=== PATIENT | male | born 1975 | race Caucasian/White ===

== ENCOUNTER 2017-03-01 11:04 | Emergency (ER) | payer MEDICARE, MEDICAID ==
[2017-03-01 11:34] VITALS: BP 123/88
--- NOTE | 2017-03-01 12:05 | UC ---
Abdominal Pain Male HPI - HPI Summary HPI Summary: Intermittent abd pain both right and left side with diarrhea- having soft stools about 1 time per day---did feel he may have been constipated a few days ago and took some MOM---no fevers chills nausea vomiting no travel, antibiodics or illness exposure - History of Current Complaint Chief Complaint: UCAbdominalPain Stated Complaint: ABD PAIN Time Seen by Provider: 03/01/17 11:36 Hx Obtained From: Patient Onset/Duration: Gradual Onset, Lasting Weeks, Still Present Timing: Constant Severity Initially: Mild Severity Currently: Mild Location: Diffuse Radiates: No Aggravating Factor(s): Nothing Alleviating Factor(s): Nothing Associated Signs And Symptoms: Positive: Diarrhea - (soft) - Allergies/Home Medications Allergies/Adverse Reactions: Allergies Allergy/AdvReac Type Severity Reaction Status Date / Time No Known Allergies Allergy Verified 03/01/17 11:18 Home Medications: Home Medications Esomeprazole Magnesium [Nexium] 40 mg PO DAILY 03/01/17 [History Confirmed 03/01] Lisinopril/HCTZ 11/29.5(NF) [Zestoretic 11/29.5(NF)] 1 tab PO DAILY 03/01/17 [ History Confirmed 03/01/17] Loratadine 10 mg PO DAILY PRN 03/01/17 [History Confirmed 03/01/17] PMH/Surg Hx/FS Hx/Imm Hx Previously Healthy: No Cardiovascular History: Hypertension GI/ History: Gastroesophageal Reflux - Surgical History Surgical History: Yes Surgery Procedure, Year, and Place: wisdom teeth removal 20 years ago - Family History Known Family History: Positive: None - Social History Occupation: Employed Full-time Lives: With Family Alcohol Use: None Substance Use Type: None Smoking Status (MU): Never Smoked Tobacco Review of Systems Constitutional: Negative Skin: Negative Eyes: Negative ENT: Negative Respiratory: Negative Cardiovascular: Negative Gastrointestinal: Abdominal Pain, Diarrhea Genitourinary: Negative Motor: Negative Neurovascular: Negative Musculoskeletal: Negative Neurological: Negative Psychological: Negative Is Patient Immunocompromised?: No All Other Systems Reviewed And Are Negative: Yes Physical Exam Triage Information Reviewed: Yes Appearance: Well-Appearing, No Pain Distress, Well-Nourished Vital Signs: Initial Vital Signs Temp 98.4 F 03/01/17 11:22 Pulse 85 03/01/17 11:22 Resp 18 03/01/17 11:22 BP 123/88 03/01/17 11:22 Pulse Ox 100 03/01/17 11:22 Vital Signs Reviewed: Yes Eye Exam: Normal Eyes: Positive: Conjunctiva Clear ENT Exam: Normal ENT: Positive: Normal ENT inspection, Hearing grossly normal, Pharynx normal, TMs normal. Negative: Nasal congestion, Nasal drainage, Tonsillar swelling, Tonsillar exudate, Trismus, Muffled voice, Hoarse voice, Dental tenderness, Sinus tenderness Dental Exam: Normal Neck exam: Normal Neck: Positive: Supple, Nontender, No Lymphadenopathy Respiratory Exam: Normal Respiratory: Positive: Chest non-tender, Lungs clear, Normal breath sounds, No respiratory distress, No accessory muscle use Cardiovascular Exam: Normal Cardiovascular: Positive: RRR, No Murmur, Pulses Normal, Brisk Capillary Refill Abdominal Exam: Normal Abdomen Description: Positive: No Organomegaly, Soft, Other: - diffuse discomfort. Negative: CVA Tenderness (R), CVA Tenderness (L), Distended, Guarding, Hernia @, Hepatomegaly, McBurney's Point Tenderness, Peritoneal Signs , Pulsatile Mass Bowel Sounds: Positive: Present Musculoskeletal Exam: Normal Musculoskeletal: Positive: Strength Intact, ROM Intact, No Edema Neurological Exam: Normal Neurological: Positive: Alert, Muscle Tone Normal Psychological Exam: Normal Skin Exam: Normal Abd Pain Male Course/Dx - Course Course Of Treatment: diet suggestions for diarrhea, stool sample follow with pcp prn - Differential Dx/Clinical Impression Provider Diagnoses: Acute diarrhea Discharge - Discharge Plan Condition: Stable Disposition: HOME Patient Education Materials: Acute Diarrhea (ED), Nutrition Tips for Relief of Diarrhea (ED) Referrals: Kacy Aguilar MD [Primary Care Provider] - 3 Days
== END 2017-03-01 12:28 | disposition home or self-care (01) ==
LOC: UCEAST 11:04
DX: R19.7 Diarrhea, unspecified (principal); R10.9 Unspecified abdominal pain; I10 Essential (primary) hypertension; K21.9 Gastro-esophageal reflux disease without esophagitis; Z79.899 Other long term (current) drug therapy
CPT/HCPCS: 99211; G0463

== ENCOUNTER 2017-03-08 15:16 | Emergency (ER) | payer MEDICARE, MEDICAID ==
[2017-03-08] MEDS ORDERED: Ibuprofen TAB* 400 MG PO ONE (17:33)
--- NOTE | 2017-03-08 17:35 | UC ---
Lower Extremity/Ankle HPI - HPI Summary HPI Summary: states he was on his way to a when he slipped from the sidewalk to the pavement in his apartment complex about 9:45am. States his pain is 1/10 without bearing weight and 4/10 when standing/walking. Pain and swelling increasingly worse - History of Current Complaint Chief Complaint: UCLowerExtremity Stated Complaint: ANKLE INJURY Time Seen by Provider: 03/08/17 16:59 Hx Obtained From: Patient Onset/Duration: Sudden Onset Severity Initially: Mild Severity Currently: Moderate Pain Scale Used: 0-10 Numeric - 4 Aggravating Factor(s): Standing Alleviating Factor(s): Rest Able to Bear Weight: Yes - Risk Factors Gout Risk Factors: Age Over 40, Male, Hypertension DVT Risk Factors: Negative - Allergies/Home Medications Allergies/Adverse Reactions: Allergies Allergy/AdvReac Type Severity Reaction Status Date / Time No Known Allergies Allergy Verified 03/01/17 11:18 PMH/Surg Hx/FS Hx/Imm Hx Previously Healthy: Yes Cardiovascular History: Hypertension GI/ History: Gastroesophageal Reflux - Surgical History Surgical History: Yes Surgery Procedure, Year, and Place: wisdom teeth removal 20 years ago - Family History Known Family History: Positive: None - Social History Alcohol Use: None Substance Use Type: None Smoking Status (MU): Never Smoked Tobacco Review of Systems Constitutional: Negative Musculoskeletal: Arthralgia, Edema All Other Systems Reviewed And Are Negative: Yes Physical Exam Triage Information Reviewed: Yes Appearance: Well-Appearing Vital Signs: Initial Vital Signs Temp 99.3 F 03/08/17 16:00 Pulse 111 03/08/17 16:00 Resp 18 03/08/17 16:00 BP 123/74 03/08/17 16:00 Pulse Ox 98 03/08/17 16:00 Vital Signs Reviewed: Yes Musculoskeletal Exam: Other - tender to palpation along lateral malleolus of right ankle and lateral aspect of right foot. Capillary refill less than 2 sec, pedal pulses present ant and posterior. Musculoskeletal: Positive: Edema @ - right ankle and dorsum right foot Lower Extremity Course/Dx - Course Course Of Treatment: xray shows minimally displaced right fibular fracture. - Differential Dx/Diagnosis Provider Diagnoses: right fibular fracture Discharge - Discharge Plan Condition: Stable Disposition: HOME Patient Education Materials: Ankle Fracture (ED) Referrals: Kacy Aguilar MD [Primary Care Provider] - Anita Champion MD [Medical Doctor] -
--- NOTE | 2017-03-08 18:21 | RAD ---
INDICATION: Lateral right ankle pain after a slip and fall injury COMPARISON: None. TECHNIQUE: 3 views of the right ankle were obtained. FINDINGS: Overlying the distal right fibula there is an obliquely oriented minimally displaced fracture. The tibia appears to be intact. The ankle mortise is intact and symmetric. Remaining visualized bones are normal. IMPRESSION: SLIGHTLY DISPLACED OBLIQUE FRACTURE OF THE DISTAL RIGHT FIBULA.
[2017-03-08 20:28] VITALS: BP 114/74
== END 2017-03-08 20:28 | disposition home or self-care (01) ==
LOC: UCEAST 15:16
DX: S82.401A Unspecified fracture of shaft of right fibula, initial encounter for closed fracture (principal); W01.0XXA Fall on same level from slipping, tripping and stumbling without subsequent striking against object, initial encounter; Y92.9 Unspecified place or not applicable
CPT/HCPCS: 99212; A9270-GY; G0463

== ENCOUNTER 2017-03-22 16:52 | Emergency (ER) | payer MEDICARE, MEDICAID ==
[2017-03-22 17:18] VITALS: BP 121/80
--- OUTSIDE RECORDS SUMMARY | 2017-03-22 17:28 | XMS REPORT ---
:1975 External Reference #:[id number] Author Organization [facility] Address [address] [address] Phone [phone] Care Team Providers Name Role Phone Kacy Mae MD Primary Care Physician Unavailable Payers Type Date Identification Numbers Payment Provider Subscriber Medicare Primary Policy Number: [id number] Medicare Bryant Bustamante PayID: [id number] [address] [place] [address] [facility] Part B Policy Number: [id number] Medicaid Bryant Bustamante Group Name: 1 1 [address] PayID: [id number] [place] [address] Problems Date Description Provider Status Onset: 03/11/2017 Closed fracture of lateral malleolus Anita Champion M.D. Active Social History Type Date Description Comments Lives With Alone Occupation Home Health Aide ETOH Use Denies alcohol use Smoking Patient has never smoked Exercise Type/Frequency Exercises sporadically Allergies, Adverse Reactions, Alerts Date Description Reaction Status Severity Comments 03/11/2017 NKDA active Medications Medication Date Status Form Strength Qnty SIG Indications Ordering Provider Ibuprofen Active Tablets 400mg 60tabs take one Anita 000 1-2 tabs Akira by mouth M.DYani every 8 hours as needed Lisinopril-Hydr Active Tablets 10-12.5mg Andrae, ochlorothiazide 000 MD Kacy Esomeprazole Active Capsules 20mg [place]'lew, Magnesium 000 DR Kacy MD Vital Signs Date Vital Result Comment 03/18/2017 Height 69 inches 5'9" Weight 180.00 lb BP Systolic 124 mmHg BP Diastolic 84 mmHg Body Temperature 98.4 F BMI (Body Mass Index) 26.6 kg/m2 03/11/2017 Height 69 inches 5'9" Weight 180.00 lb Heart Rate 82 /min Respiratory Rate 16 /min Body Temperature 98.7 F Pain Level 2 BMI (Body Mass Index) 26.6 kg/m2 Results Description No Information Procedures Date CPT Code Description Status 03/11/2017 98751 Closed [place] Prox/Shaft Fibula W/O Manip Completed Plan of Care Future Appointment(s):03/25/2017 2:30 pm - Anita Champion M.D. at [facility]03/18/2017 - Anita Champion M.D.M25.571 Pain in right ankle and joints of right footFollow up:Follow up: 1 weekS82.61xA Disp fx of lateral malleolus of right fibula, init
--- OUTSIDE RECORDS SUMMARY | 2017-03-22 17:28 | XMS REPORT ---
:1975 External Reference #:[id number] Author Organization [facility] Address [address] [address] Phone [phone] Care Team Providers Name Role Phone Kacy Mae MD Primary Care Physician Unavailable Payers Type Date Identification Numbers Payment Provider Subscriber Medicare Primary Policy Number: [id number] Medicare Bryant Bustamante PayID: [id number] [address] [place] [address] [facility] Part B Policy Number: [id number] Medicaid Bryant Bustamante Group Name: 1 1 [address] PayID: [id number] [place] [address] Problems Date Description Provider Status Onset: 03/11/2017 [...] Indications Ordering Provider Ibuprofen Active Tablets 400mg Unknown 00 Lisinopril-[facility] Active Tablets 10-12.5mg Andrae, chlorothiazide 00 MD Kacy Esomeprazole Active Capsules DR 20mg Andrae, Magnesium 00 MD Kacy Vital Signs Date Vital Result Comment 03/11/2017 Height 69 inches 5'9" Weight 180.00 lb Heart Rate 82 /min Respiratory Rate 16 /min Body Temperature 98.7 F Pain Level 2 BMI (Body Mass Index) 26.6 kg/m2 Results Description No Information Procedures Date CPT Code Description Status 03/11/2017 25358 Short Leg Cast Completed 03/11/2017 27313 Closed [place] Prox/Shaft Fibula W/O Manip Completed Plan of Care Future Appointment(s):03/25/2017 2:30 pm - Anita Champion M.D. at [facility]03/11/2017 - Anita Champion M.D.M25.571 Pain in right ankle and joints of right footNew Xrays:Ankle Right 3+VWSFollow up:Follow up: 2 [id number] Disp fx of lateral malleolus of right fibula, init
--- NOTE | 2017-03-22 20:40 | ED ---
ED Suture/Wound Check - HPI Summary HPI Summary: Patient presents to the ED from orthopedics office after stepping in some water earlier today. Currently has a right short leg cast which comes off on Saturday. He states he got the foot slightly damp this afternoon and was concerned. After calling orthopedics office, the nurse advised he come to the ED for a cast change. On arrival, he states to the provider that while he may have felt slightly damp in the toes and shortly in the heel, the area dried up quickly and he denies any of that dampness at this time. He does not feel he had his heel involved. He was able to take a dryer to the toes and dried out the area well. On arrival, the cast is evaluated by provider and no dampness is noted. - History Of Current Complaint Chief Complaint: EDExtremityLower Stated Complaint: NEEDS CAST REWRAPPED Time Seen by Provider: 03/22/17 19:25 Hx Obtained From: Patient Onset/Duration: Sudden Onset Severity: Moderate Pain Intensity: 1 - Allergies/Home Medications Allergies/Adverse Reactions: Allergies Allergy/AdvReac Type Severity Reaction Status Date / Time No Known Allergies Allergy Verified 03/01/17 11:18 Home Medications: Home Medications Esomeprazole(NF) [NexIUM(NF)] 40 mg PO DAILY 03/22/17 [History Confirmed ] LoraTADine TAB(NF) [Claritin 10 MG TAB(NF)] 10 mg PO DAILY 03/22/17 [History Confirmed 03/22/17] PMH/Surg Hx/FS Hx/Imm Hx Previously Healthy: Yes Endocrine/Hematology History: Denies: Hx Diabetes, Hx Thyroid Disease Cardiovascular History: Reports: Hx Hypertension Respiratory History: Denies: Hx Asthma, Hx Chronic Obstructive Pulmonary Disease (COPD) GI History: Denies: Hx Ulcer - Surgical History Surgery Procedure, Year, and Place: wisdom teeth removal 20 years ago - Immunization History Hx Pertussis Vaccination: No Immunizations Up to Date: Unable to Obtain/Confirm Infectious Disease History: No Infectious Disease History: Denies: Hx Hepatitis, Hx Human Immunodeficiency Virus (HIV), Traveled Outside the [place] in Last 30 Days - Family History Known Family History: Positive: None - Social History Occupation: Unemployed, Disabled Lives: With Family Alcohol Use: Rare Hx Substance Use: No Substance Use Type: Reports: None Hx Tobacco Use: Yes Smoking Status (MU): Former Smoker Review of Systems Constitutional: Negative Negative: Fever, Chills, Fatigue Eyes: Negative Cardiovascular: Negative Respiratory: Negative Genitourinary: Negative Positive: no symptoms reported, see HPI Musculoskeletal: Negative Neurological: Negative Psychological: Normal All Other Systems Reviewed And Are Negative: Yes Physical Exam Triage Information Reviewed: Yes Vital Signs On Initial Exam: Initial Vitals Temp Pulse Resp BP Pulse Ox 98.2 F 79 18 121/80 98 03/22/17 17:14 03/22/17 17:14 03/22/17 17:14 03/22/17 17:14 03/22/17 17:14 Vital Signs Reviewed: Yes Appearance: Positive: Well-Appearing, Well-Nourished Skin: Positive: Warm, Skin Color Reflects Adequate Perfusion Head/Face: Positive: Normal Head/Face Inspection Eyes: Positive: EOMI, MISTY, Conjunctiva Clear Neck: Positive: Supple, No Lymphadenopathy Respiratory/Lung Sounds: Positive: Clear to Auscultation, Breath Sounds Present Cardiovascular: Positive: Normal, RRR, Pulses are Symmetrical in both Upper and Lower Extremities Musculoskeletal: Positive: Normal, Strength/ROM Intact Neurological: Positive: Speech Normal Psychiatric: Positive: Affect/Mood Appropriate AVPU Assessment: Alert Diagnostics - Vital Signs Vital Signs Temp Pulse Resp BP Pulse Ox 03/22/17 17:14 98.2 F 79 18 121/80 98 - Laboratory Lab Statement: Any lab studies that have been ordered have been reviewed, and results considered in the medical decision making process. Course/Dx - Course Course Of Treatment: During the course of treatment the patient is evaluated for a possible need for the change of cast. On physical exam the cast appears to be dry. He is he states he does not feel that she'll was involved, and was able to dry the toes out using a hairspring ii inspector. He is to have his cast removed on Saturday. Treatment options explained to the patient. I have asked the patient if he would like us to change out the cast at this time. He states he would like to keep the cast on as he does not feel it is wet, but was concerned as he was told to come in to have it evaluated. I've explained the concerns for getting the cast moist involving skin lesions and other complications. Patient will follow-up with Dr. Champion's office on Saturday as scheduled. - Clinical Impression Provider Diagnoses: Encounter for cast change Discharge - Discharge Plan Condition: Stable Disposition: HOME Referrals: Kacy Aguilar MD [Primary Care Provider] - Additional Instructions: As discussed, keep the cast dry Since you are not feeling any dampness and the cast is dry on exam in the emergency department, I feel we should keep the cast on You will have it removed on Saturday as scheduled
== END 2017-03-22 19:58 | disposition home or self-care (01) ==
LOC: ED 16:52
DX: Z46.89 Encounter for fitting and adjustment of other specified devices (principal); Z86.79 Personal history of other diseases of the circulatory system; Z87.891 Personal history of nicotine dependence
CPT/HCPCS: 99282

== ENCOUNTER 2018-01-17 19:26 | Emergency (ER) | payer MEDICARE, MEDICAID ==
[2018-01-17 21:57] LABS: ABS Basophils 0 10^3/ul (0-0.2); ABS Eosinophils 0.1 10^3/ul (0-0.6); ABS Lymphocytes 2.8 10^3/ul (1.0-4.8); ABS Monocytes 0.7 10^3/ul (0-0.8); ABS Nucleated RBC 0 10^3/ul; Eosinophil % 1.5 %; Hematocrit 45 % (42-52); Hemoglobin 15.7 g/dl (14.0-18.0); Lymphocyte % 36.4 %; Mean Corpuscular HGB Conc 35 g/dl (31-36); Mean Corpuscular Hemoglobin 30 pg (27-31); Mean Corpuscular Volume 85 fL (80-94); Mean Platelet Volume 8.7 fL (7.4-10.4); Nucleated Red Blood Cells % 0.1; Platelet Count 307 10^3/ul (150-450); Red Blood Count 5.29 10^6/ul (4.00-5.40); Red Cell Distribution Width 13 % (10.5-15); White Blood Count 7.7 10^3/ul (3.5-10.8)
[2018-01-17 22:02] LABS: INR 0.98 (0.77-1.02)
[2018-01-17 22:12] LABS: EGFR Non-African American 74.2 (>60)
--- NOTE | 2018-01-18 00:22 | ED ---
GI/ HPI - HPI Summary HPI Summary: 42-year-old male presents with right upper quadrant pain for the past days. States started more on the side of his right ribs. He states the pain is achy. He states he feels very superficial. He denies any chest pain or shortness breath. No pain or swelling in his calf muscles. He is nonsmoker no recent travel and no family history of blood clots. No change in appetite. Food does not change the pain. Hasn't taking anything for his symptoms. No previous belly surgeries. No urinary symptoms. No flank pain. No nausea or vomiting. - History of Current Complaint Chief Complaint: EDAbdPain Time Seen by Provider: 01/17/18 23:20 Stated Complaint: ABD PAIN Pain Intensity: 2 - Allergy/Home Medications Allergies/Adverse Reactions: Allergies Allergy/AdvReac Type Severity Reaction Status Date / Time No Known Allergies Allergy Verified 03/01/17 11:18 PMH/Surg Hx/FS Hx/Imm Hx Endocrine/Hematology History: Denies: Hx Diabetes, Hx Thyroid Disease Cardiovascular History: Reports: Hx Hypertension Respiratory History: Denies: Hx Asthma, Hx Chronic Obstructive Pulmonary Disease (COPD) GI History: Denies: Hx Ulcer - Surgical History Surgery Procedure, Year, and Place: wisdom teeth removal 20 years ago Infectious Disease History: Unable to Obtain/Confirm Infectious Disease History: Denies: Hx Hepatitis, Hx Human Immunodeficiency Virus (HIV), Traveled Outside the [place] in Last 30 Days - Family History Known Family History: Positive: None - Social History Alcohol Use: Rare Hx Substance Use: No Substance Use Type: Reports: None Hx Tobacco Use: Yes Smoking Status (MU): Former Smoker Review of Systems Negative: Fever Negative: Chest Pain Negative: Shortness Of Breath Positive: Abdominal Pain. Negative: Vomiting, Diarrhea, Nausea All Other Systems Reviewed And Are Negative: Yes Physical Exam Triage Information Reviewed: Yes Vital Signs On Initial Exam: Initial Vitals Temp Pulse Resp BP Pulse Ox 98.1 F 97 16 125/86 99 01/17/18 19:27 01/17/18 19:27 01/17/18 19:27 01/17/18 19:27 01/17/18 19:27 Vital Signs Reviewed: Yes Appearance: Positive: Well-Appearing Skin: Positive: Warm, Dry Head/Face: Positive: Normal Head/Face Inspection Eyes: Positive: Normal, Conjunctiva Clear ENT: Positive: Pharynx normal Respiratory/Lung Sounds: Positive: Clear to Auscultation, Breath Sounds Present Cardiovascular: Positive: Normal, RRR Abdomen Description: Positive: Soft, Other: - mild tenderness over right rib 11- 12 Bowel Sounds: Positive: Present Musculoskeletal: Positive: Normal Neurological: Positive: Normal Psychiatric: Positive: Normal Diagnostics - Vital Signs Vital Signs Temp Pulse Resp BP Pulse Ox 01/17/18 23:16 84 97 01/17/18 23:14 77 143/93 97 01/17/18 21:47 97.8 F 91 18 128/84 98 01/17/18 19:27 98.1 F 97 16 125/86 99 - Laboratory Lab Results: Lab Results 01/17/18 01/17/18 01/17/18 Range/Units 21:37 21:37 21:37 WBC 7.7 (3.5-10.8) 10^3/ul RBC 5.29 (4.00-5.40) 10^6/ul Hgb 15.7 (14.0-18.0) g/dl Hct 45 (42-52) % MCV 85 (80-94) fL MCH 30 (27-31) pg MCHC 35 (31-36) g/dl RDW 13 (10.5-15) % Plt Count 307 (150-450) 10^3/ul MPV 8.7 (7.4-10.4) fL Neut % (Auto) 52.3 % Lymph % (Auto) 36.4 % [place] % (Auto) 9.4 % Eos % (Auto) 1.5 % Baso % (Auto) 0.4 % Absolute Neuts (auto) 4.0 (1.5-7.7) 10^3/ul Absolute Lymphs (auto) 2.8 (1.0-4.8) 10^3/ul Absolute Monos (auto) 0.7 (0-0.8) 10^3/ul Absolute Eos (auto) 0.1 (0-0.6) 10^3/ul Absolute Basos (auto) 0 (0-0.2) 10^3/ul Absolute Nucleated RBC 0 10^3/ul Nucleated RBC % 0.1 INR (Anticoag Therapy) 0.98 (0.77-1.02) APTT 32.0 (26.0-36.3) seconds Sodium 137 (135-145) mmol/L Potassium 3.6 (3.5-5.0) mmol/L Chloride 100 L (101-111) mmol/L Carbon Dioxide 29 (22-32) mmol/L Anion Gap 8 (2-11) mmol/L BUN 12 (6-24) mg/dL Creatinine 1.09 (0.67-1.17) mg/dL Est GFR ( Amer) 89.8 (>60) Est GFR (Non-Af Amer) 74.2 (>60) BUN/Creatinine Ratio 11.0 (8-20) Glucose 111 H (70-100) mg/dL Calcium 9.7 (8.6-10.3) mg/dL Total Bilirubin 0.50 (0.2-1.0) mg/dL AST 25 (13-39) U/L ALT 32 (7-52) U/L Alkaline Phosphatase 71 (34-104) U/L Total Protein 7.5 (6.4-8.9) g/dL Albumin 4.6 (3.2-5.2) g/dL Globulin 2.9 (2-4) g/dL Albumin/Globulin Ratio 1.6 (1-3) Lipase 34 (11.0-82.0) U/L Result Diagrams: 01/17/18 21:37 01/17/18 21:37 Lab Statement: Any lab studies that have been ordered have been reviewed, and results considered in the medical decision making process. - Ultrasound No standard instances Ultrasound Interpretation Completed By: Radiologist Summary of Ultrasound Findings: IMPRESSION: No sonographic findings to correlate with patient's symptomatology. GIGU Course/Dx - Course Course Of Treatment: 42-year-old male presents with right upper quadrant pain for the past days. States started more on the side of his right ribs. He states the pain is achy. He states he feels very superficial. He denies any chest pain or shortness breath. No pain or swelling in his calf muscles. He is nonsmoker no recent travel and no family history of blood clots. No change in appetite. Food does not change the pain. Hasn't taking anything for his symptoms. No previous belly surgeries. No urinary symptoms. No flank pain. No nausea or vomiting. On exam tenderness more so over right lower ribs 11 through 12. Is a little tender right upper quadrant. Labs within normal limits. Ultrasound normal. Discussed could be muscular versus costochondritis. Patient understands and agrees with the plan. - Diagnoses Differential Diagnoses - Male: Cholecystitis, Cholelithiasis, Urinary Tract Infection Provider Diagnoses: Abdominal pain Discharge - Sign-Out/Discharge Documenting (check all that apply): Patient Departure - Discharge Plan Condition: Good Disposition: HOME Patient Education Materials: Abdominal Pain (ED) Referrals: Kacy Aguilar MD [Primary Care Provider] - Additional Instructions: Take ibuprofen or Tylenol for pain as needed every 6 hours Follow up with primary within 5 days Return to ED if develop any new or worsening symptoms - Billing Disposition and Condition Condition: GOOD Disposition: Home
[2018-01-18 00:46] VITALS: BP 117/60
== END 2018-01-18 00:50 | disposition home or self-care (01) ==
LOC: ED 19:26
DX: R10.11 Right upper quadrant pain (principal); Z87.891 Personal history of nicotine dependence
CPT/HCPCS: 36415; 76705; 80053; 83690; 85025; 85610; 85730; 99283

== ENCOUNTER 2018-03-05 12:49 | Emergency (ER) | payer MEDICARE, MEDICAID ==
--- NOTE | 2018-03-05 13:06 | ED ---
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 He has had episodes of similar CP since 2017, but it was not evaluated. Patient had a stress test approximately 10 years ago. Pain is described as pressure. Aggravating factors: touch. Alleviating factors: belching. Denies n/v, SOB, palpitations, lightheadedness. PMHx: HTN. He takes Lisinopril, Esomeprazole, allergy pill. He is a former smoker and quit 20+ years ago. ETOH socially. No recreational drugs. - History of Current Complaint Chief Complaint: EDChestWallPain Time Seen by Provider: 03/05/18 13:00 Hx Obtained From: Patient Onset/Duration: Still Present Timing: Constant Initial Severity: Mild Current Severity: Mild Pain Intensity: 3 Pain Scale Used: 0-10 Numeric Chest Pain Location: Mid Sternal Character: Pressure/Squeezing Aggravating Factor(s): Other: - touch Alleviating Factor(s): Other: - belching Associated Signs and Symptoms: Negative: Shortness of Breath, Lightheadedness, Nausea, Palpitations, Vomiting - Allergy/Home Medications Allergies/Adverse Reactions: Allergies Allergy/AdvReac Type Severity Reaction Status Date / Time No Known Allergies Allergy Verified 03/05/18 12:59 Home Medications: Home Medications Esomeprazole(NF) [NEXium(NF)] 20 mg PO DAILY 03/05/18 [History Confirmed ] Loratadine [Allergy Relief] 10 mg PO DAILY 03/05/18 [History Confirmed 03/05/18] PMH/Surg Hx/FS Hx/Imm Hx Previously Healthy: No Endocrine/Hematology History: Denies: Hx Diabetes, Hx Thyroid Disease Cardiovascular History: Reports: Hx Hypertension Respiratory History: Denies: Hx Asthma, Hx Chronic Obstructive Pulmonary Disease (COPD) GI History: Denies: Hx Ulcer - Surgical History Surgery Procedure, Year, and Place: wisdom teeth removal 20 years ago Infectious Disease History: No Infectious Disease History: Denies: Hx Hepatitis, Hx Human Immunodeficiency Virus (HIV), Traveled Outside the [place] in Last 30 Days - Family History Known Family History: Positive: Other - ETOH abuse (dad) - Social History Occupation: Employed Full-time Lives: Alone Alcohol Use: Rare Hx Substance Use: No Substance Use Type: Reports: None Hx Tobacco Use: Yes Smoking Status (MU): Former Smoker Review of Systems Positive: Chest Pain. Negative: Palpitations Negative: Shortness Of Breath Negative: Vomiting, Nausea Neurological: Other - neg: lightheadedness All Other Systems Reviewed And Are Negative: Yes Physical Exam - Summary Physical Exam Summary: VITAL SIGNS: Reviewed. GENERAL: Patient is a well-developed and nourished MALE who is lying comfortable in the stretcher. Patient is not in any acute respiratory distress. HEAD AND FACE: No signs of trauma. No ecchymosis, hematomas or skull depressions. No sinus tenderness. EYES: PERRLA, EOMI x 2, No injected conjunctiva, no nystagmus. EARS: Hearing grossly intact. Ear canals and tympanic membranes are within normal limits. MOUTH: Oropharynx within normal limits. NECK: Supple, trachea is midline, no adenopathy, no JVD, no carotid bruit, no c- spine tenderness, neck with full ROM. CHEST: Symmetric, mild reproducible tenderness at palpation LUNGS: Clear to auscultation bilaterally. No wheezing or crackles. CVS: Regular rate and rhythm, S1 and S2 present, no murmurs or gallops appreciated. ABDOMEN: Soft, non-tender. No signs of distention. No rebound, no guarding, and no masses palpated. Bowel sounds are normal. EXTREMITIES: FROM in all major joints, no edema, no cyanosis or clubbing EXCEPT LUE weakness since NEURO: Alert and oriented x 3. No acute neurological deficits. Speech is normal and follows commands. SKIN: Dry and warm Triage Information Reviewed: Yes Vital Signs On Initial Exam: Initial Vitals Temp Pulse Resp BP Pulse Ox 97.5 F 89 16 126/90 98 03/05/18 12:52 03/05/18 12:52 03/05/18 12:52 03/05/18 12:52 03/05/18 12:52 Vital Signs Reviewed: Yes Diagnostics - Vital Signs Vital Signs Temp Pulse Resp BP Pulse Ox 03/05/18 12:52 97.5 F 89 16 126/90 98 - Laboratory Result Diagrams: 03/05/18 13:19 03/05/18 13:19 Lab Statement: Any lab studies that have been ordered have been reviewed, and results considered in the medical decision making process. - Radiology CXR Radiology Interpretation Completed By: Radiologist Summary of Radiographic Findings: IMPRESSION: NO ACTIVE CARDIOPULMONARY DISEASE. ED provider has reviewed this report. - EKG 1313 Cardiac Rate: NL - 91 bpm EKG Rhythm: Sinus Rhythm ST Segment: Normal - no ST elevation Re-Evaluation - Re-Evaluation 1 Re-Evaluation Time: 16:40 Change: Unchanged Comment: Discussing results with patient and plans for discharge. Pt voiced understanding. 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 He has had episodes of similar CP since 2017, but it was not evaluated. Patient had a stress test approximately 10 years ago. Pain is described as pressure. Aggravating factors: touch. Alleviating factors: belching. Denies n/v, SOB, palpitations, lightheadedness. PMHx: HTN. He takes Lisinopril, Esomeprazole, allergy pill. He is a former smoker and quit 20+ years ago. ETOH socially. No recreational drugs. Blood work is without any significant abnormality. EKG shows no ST elevation. 2 troponins 4 hours apart are both negative. Chest x-ray impression: No active cardiopulmonary disease. Patient reports that all symptoms have resolved. Because the patient has no significant comorbidities and no family history of cardiovascular disease at his age, the patient will be discharged home with PCP follow up. I discussed all the findings and test results with the patient. Patient was instructed to return to the emergency room immediately if any of the symptoms return or worsens. Patient understands and agrees. Plan of care was discussed with the patient and patient understands and agrees. All questions were answered at patient satisfaction. There were no further complaints or concerns. PE before discharge: CVS: S1 and S2 present. No murmurs appreciated. Abdominal exam before discharge: Soft, non-tender. No signs of distention. No rebound no guarding, and no masses palpated. Bowel sounds are normal. Patient is alert and oriented x 3. Patient is hemodynamically stable. - Chest Pain Differential Diagnosis/HQI/PQRI: Acute NE, ACS, Angina, CHF, Chest Wall, GI Disease, Lower Respiratory Infection - Diagnoses Provider Diagnoses: Atypical chest pain Discharge - Sign-Out/Discharge Documenting (check all that apply): Patient Departure - D/C - Discharge Plan Condition: Stable Disposition: HOME Patient Education Materials: Chest Pain (ED), Chest Wall Pain (ED) Referrals: Kacy Aguilar MD [Primary Care Provider] - 3 Days Additional Instructions: RETURN TO THE ED FOR ANY WORSENING OR NEW SYMPTOMS. - Billing Disposition and Condition Condition: STABLE Disposition: Home - Attestation Statements Document Initiated by Scribe: Yes Documenting Scribe: Kiel Devi Provider For Whom Scribe is Documenting (Include Credential): Dr. Alin Camarillo MD Scribe Attestation: Kiel Griffith, scribed for Dr. Alin Camarillo MD on 03/06/18 at 0756. Scribe Documentation Reviewed: Yes Provider Attestation: The documentation as recorded by the Kiel alvarenga accurately reflects the service I personally performed and the decisions made by me, Dr. Alin Camarillo MD Status of Scribe Document: Viewed
[2018-03-05] MEDS ORDERED: Aspirin 81 mg CHEW TAB* 81 MG TAB.CHEW PO ONE (13:13)
[2018-03-05 13:34] LABS: ABS Basophils 0 10^3/ul (0-0.2); ABS Eosinophils 0.1 10^3/ul (0-0.6); ABS Lymphocytes 2.2 10^3/ul (1.0-4.8); ABS Monocytes 0.5 10^3/ul (0-0.8); ABS Neutrophils 3.7 10^3/ul (1.5-7.7); ABS Nucleated RBC 0 10^3/ul; Eosinophil % 1.5 %; Hematocrit 44 % (42-52); Hemoglobin 15.4 g/dl (14.0-18.0); Lymphocyte % 34.1 %; Mean Corpuscular HGB Conc 35 g/dl (31-36); Mean Corpuscular Hemoglobin 30 pg (27-31); Mean Corpuscular Volume 84 fL (80-94); Mean Platelet Volume 8.9 fL (7.4-10.4); Nucleated Red Blood Cells % 0.1; Platelet Count 263 10^3/ul (150-450); Red Blood Count 5.19 10^6/ul (4.00-5.40); Red Cell Distribution Width 13 % (10.5-15); White Blood Count 6.6 10^3/ul (3.5-10.8)
[2018-03-05 13:57] LABS: Albumin/Globulin Ratio 1.2 (1-3); BUN/Creatinine Ratio 11.4 (8-20); Calcium 9.6 mg/dL (8.6-10.3); EGFR Non-African American 77.5 (>60); Globulin 3.3 g/dL (2-4); Magnesium 2.2 mg/dL (1.9-2.7); Potassium 3.5 mmol/L (3.5-5.0); Total Bilirubin 0.6 mg/dL (0.2-1.0); Total Protein 7.3 g/dL (6.4-8.9)
[2018-03-05 14:27] LABS: TSH (Thyroid Stimulating Horm) 0.88 mcIU/mL (0.34-5.60)
[2018-03-05 16:48] VITALS: BP 111/87
== END 2018-03-05 16:48 | disposition home or self-care (01) ==
LOC: ED 12:49
DX: R07.89 Other chest pain (principal); I10 Essential (primary) hypertension; Z87.891 Personal history of nicotine dependence
CPT/HCPCS: 36415; 71045; 80053; 82550; 82553; 83605; 83735; 83880; 84443; 84484; 85025; 93005; 99282; A9270-GY

== ENCOUNTER 2018-06-03 18:43 | Emergency (ER) | payer MEDICARE, MEDICAID ==
--- NOTE | 2018-06-03 18:49 | UC ---
Throat Pain/Nasal [place] HPI - HPI Summary HPI Summary: 42 yo male presents with sore throat since last night. He has been using OTC throat lozenges and drinking hot chocolate, which help. He is concerned he may have strep. No known exposure. Denies fever, sinus symptoms, cough, rash. - History of Current Complaint Stated Complaint: SORE THROAT Time Seen by Provider: 06/03/18 18:49 Hx Obtained From: Patient Onset/Duration: Sudden Onset Severity: Mild Pain Intensity: 3 Pain Scale Used: 0-10 Numeric - Allergies/Home Medications Allergies/Adverse Reactions: Allergies Allergy/AdvReac Type Severity Reaction Status Date / Time No Known Allergies Allergy Verified 03/05/18 12:59 Home Medications: Home Medications raNITIdine HCl [Zantac 150 Maximum Streng] 150 mg PO DAILY 06/03/18 [History Confirmed 06/03/18] PMH/Surg Hx/FS Hx/Imm Hx Cardiovascular History: Hypertension - Surgical History Surgical History: Yes Surgery Procedure, Year, and Place: wisdom teeth removal 20 years ago - Family History Known Family History: Positive: Other - ETOH abuse (dad) - Social History Lives: With Family Alcohol Use: Rare Substance Use Type: None Smoking Status (MU): Former Smoker Review of Systems All Other Systems Reviewed And Are Negative: Yes Constitutional: Positive: Negative Skin: Positive: Negative Eyes: Positive: Negative ENT: Positive: Sore Throat Respiratory: Positive: Negative Cardiovascular: Positive: Negative Gastrointestinal: Positive: Negative Neurovascular: Positive: Negative Neurological: Positive: Negative Psychological: Positive: Negative Physical Exam - Summary Physical Exam Summary: GENERAL: NAD. WDWN. No pain distress. SKIN: No rashes, sores, lesions, or open wounds. HEENT: Head: AT/NC Eyes: EOM intact. Conjunctiva clear without inflammation or discharge. Ears: Hearing grossly normal. TMs intact, no bulging, erythema, or edema. Nose: Nasal mucosa pink and moist. NTTP maxillary and frontal sinus. Throat: Posterior oropharynx without exudates, erythema, or tonsillar enlargement. Uvula midline. NECK: Supple. Nontender. No lymphadenopathy. CHEST: CTAB. No r/r/w. No accessory muscle use. Breathing comfortably and in no distress. CV: RRR. Without m/r/g. Pulses intact. Cap refill <2seconds NEURO: Alert. PSYCH: Age appropriate behavior. Triage Information Reviewed: Yes Vital Signs: Vital Signs: Temp Pulse Resp BP Pulse Ox 98.3 F 99 18 129/83 98 06/03/18 19:00 06/03/18 19:00 06/03/18 19:00 06/03/18 19:00 06/03/18 19:00 Laboratory Tests 06/03/18 18:58 Group A Strep Rapid Negative Vital Signs Reviewed: Yes Throat Pain/Nasal Course/Dx - Course Course Of Treatment: POC strep negative. Suspect viral pharyngitis. Advised to continue OTC treatments and f/u if symptoms do not improve. - Differential Dx/Diagnosis Provider Diagnosis: Pharyngitis Discharge - Sign-Out/Discharge Documenting (check all that apply): Patient Departure All imaging exams completed and their final reports reviewed: No Studies - Discharge Plan Condition: Stable Disposition: HOME Patient Education Materials: Pharyngitis (ED) Referrals: Kacy Aguilar MD [Primary Care Provider] - Additional Instructions: If you develop a fever, shortness of breath, chest pain, new or worsening symptoms - please call your PCP or go to the ED. Continue your throat lozenges and hot chocolate/tea Follow up if your symptoms do not improve - Billing Disposition and Condition Condition: STABLE Disposition: Home
[2018-06-03 19:02] VITALS: BP 129/83
== END 2018-06-03 19:20 | disposition home or self-care (01) ==
LOC: UCEAST 18:43
DX: J02.9 Acute pharyngitis, unspecified (principal); I10 Essential (primary) hypertension; Z87.891 Personal history of nicotine dependence
CPT/HCPCS: 87651; 99212; G0463

== ENCOUNTER 2019-04-01 15:52 | Emergency (ER) | payer MEDICARE, MEDICAID ==
[2019-04-01 16:07] VITALS: BP 129/89
--- NOTE | 2019-04-01 16:55 | UC ---
Upper Extremity HPI - HPI Summary HPI Summary: 43 yo with hypertension with a week hx of right shoulder pain, both posterior and in the right pectoral region, associated with movement. 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 No neck pain and no arm numbness. At the same time, he has noticed that he has a small nodule in the suprascapular area on the right. Using ibuprofen 400mg once daily for discomfort. - History of Current Complaint Chief Complaint: UCUpperExtremity Stated Complaint: SHOULDER PAIN Time Seen by Provider: 04/01/19 16:11 Hx Obtained From: Patient Onset/Duration: Gradual Onset, Lasting Days Severity Initially: Mild Severity Currently: Mild Pain Intensity: 1 Location Of Pain: Is Diffuse Character: Aching Aggravating Factor(s): Movement Alleviating Factor(s): OTC Meds Associated Signs And Symptoms: Positive: Negative Related History: Dominant Hand Right - Risk Factors Non-Orthopedic Risk Factor: Negative DVT Risk Factors: Negative Septic Arthritis Risk Factor: Negative - Allergies/Home Medications Allergies/Adverse Reactions: Allergies Allergy/AdvReac Type Severity Reaction Status Date / Time No Known Allergies Allergy Verified 04/01/19 16:08 Home Medications: Home Medications Omeprazole 20 mg PO DAILY 04/01/19 [History Confirmed 04/01/19] PMH/Surg Hx/FS Hx/Imm Hx Previously Healthy: Yes - hx of injury resulting in left sided weakness. - Surgical History Surgical History: Yes Surgery Procedure, Year, and Place: wisdom teeth removal 20 years ago - Family History Known Family History: Positive: Other - ETOH abuse (dad) - Social History Occupation: Employed Full-time Alcohol Use: Occasionally Substance Use Type: None Smoking Status (MU): Former Smoker When Did the Patient Quit Smoking/Using Tobacco: 1995 Review of Systems All Other Systems Reviewed And Are Negative: Yes Constitutional: Positive: Negative Skin: Positive: Other - skin nodule, sees derm regularly Eyes: Positive: Negative ENT: Positive: Negative Respiratory: Positive: Negative Cardiovascular: Positive: Negative Gastrointestinal: Positive: Negative Genitourinary: Positive: Negative Motor: Positive: Decreased ROM - right shoulder Neurovascular: Positive: Negative Musculoskeletal: Positive: Negative Neurological/Mental Status: Positive: Negative Psychological: Positive: Negative Is Patient Immunocompromised?: No Physical Exam Triage Information Reviewed: Yes Appearance: Well-Appearing, No Pain Distress Vital Signs: Initial Vital Signs Temp 98.2 F 04/01/19 15:58 Pulse 94 04/01/19 15:58 Resp 16 04/01/19 15:58 BP 129/89 04/01/19 15:58 Pulse Ox 99 04/01/19 15:58 Eye Exam: Normal ENT: Positive: Pharynx normal Neck: Positive: Supple, Nontender, No Lymphadenopathy Respiratory: Positive: Lungs clear, Normal breath sounds Cardiovascular: Positive: RRR, No Murmur Musculoskeletal Exam: Other - Full rom in cervical spine without pain. Mild TTP posterior latissimus and anterior pectoral region. No shoulder joint line tenderness. Musculoskeletal: Positive: Strength Intact, ROM Intact - Mild tenderness with IR of right shoulder and adduction. Neurological Exam: Other - left arm with muscle atrophy and diffuse weakness. Neurological: Positive: Alert Psychological Exam: Normal Skin Exam: Other - 1.5 cm firm subcutaneous nodule in the right supraacapular area, consistent with sebaceous cyst. Upper Extremity Course/Dx - Course Course Of Treatment: Advised continued use of ibuprofen and heat /ice to shoulder. He will follow up with his military logistics specialist in a few months regarding cyst. - Differential Dx/Diagnosis Differential Diagnosis/HQI/PQRI: Bursitis, Strain, Sprain Provider Diagnosis: Right shoulder strain Discharge ED - Sign-Out/Discharge Documenting (check all that apply): Patient Departure All imaging exams completed and their final reports reviewed: No Studies - Discharge Plan Condition: Stable Disposition: HOME Patient Education Materials: Shoulder Sprain (ED), Cyst (ED) Referrals: Kacy Aguilar MD [Primary Care Provider] - Additional Instructions: As discussed, you will have your military logistics specialist check the cyst over the shoulder blade at your next follow up. The shoulder ache is most likely a strain from some activity or from bad sleeping position. You can try ice or warm packs to the area, and continue use of ibuprofen. If pain continues for more than 1-2 weeks, follow up with Dr. Hinson. - Billing Disposition and Condition Condition: STABLE Disposition: Home
[2019-04-02 12:39] LABS: HIV 4th Generation Nonreactive (Nonreactive)
== END 2019-04-01 17:20 | disposition home or self-care (01) ==
LOC: UCEAST 15:52
DX: S46.811A Strain of other muscles, fascia and tendons at shoulder and upper arm level, right arm, initial encounter (principal); Z87.891 Personal history of nicotine dependence; X58.XXXA Exposure to other specified factors, initial encounter; Y92.9 Unspecified place or not applicable
CPT/HCPCS: 36415; 87389; 99211; G0463

== ENCOUNTER 2023-09-13 07:45 | Inpatient (IN) ==
[2023-09-13] MEDS: Orphenadrine Citrate INJ 30 mg/ml 2 ml VIAL (60 mg) IV ONE ×2 (08:33→17:07)
[2023-09-13] MEDS: Ondansetron 4 mg VIAL 2 MG/ML 2 ml VIAL IV ONE (08:33)
[2023-09-13 08:35] LABS: ABS Basophils 0.1 10^3/uL (0.0-0.1); ABS Lymphocytes 1.1 10^3/uL (1.0-4.8); ABS Monocytes 1.1 10^3/uL (0.0-1.1); ABS Neutrophils 11.7 10^3/uL (1.5-7.6); Eosinophil % 0.1 %; Hematocrit 38.6 % (38-53); Hemoglobin 13.7 g/dL (13.2-16.3); Lymphocyte % 8.1 %; Mean Corpuscular Hemoglobin 29.8 pg (27-33); Mean Corpuscular Hgb Conc 35.5 g/dL (31-36); Mean Corpuscular Volume 83.8 fL (80-97); Mean Platelet Volume 8.2 fL (7.5-11.2); Platelet Count 289 10^3/uL (150-450); Red Cell Distribution Width 12.8 % (12-17); White Blood Count 14.1 10^3/uL (3.6-10.2)
[2023-09-13 09:01] LABS: Albumin/Globulin Ratio 1.4 (1-3); C Reactive Protein 49.48 mg/L (<8.01); Calcium 8.8 mg/dL (8.6-10.3); Creatinine, Serum 1.64 mg/dL (0.67-1.17); Globulin 2.9 g/dL (2-4); Potassium 3.8 mmol/L (3.5-5.0); Total Bilirubin 1.1 mg/dL (0.2-1.0); Total Protein 6.9 g/dL (6.4-8.9); eGFR CKD-EPI 51.6 (>60)
[2023-09-13 10:43] LABS: Urine Appearance Turbid; Urine Bilirubin Negative (Negative); Urine Blood 3+ (Negative); Urine Color Yellow; Urine Glucose 1+ (>=70 mg/dL) (Negative); Urine Ketones 2+ (Negative); Urine Nitrite Negative (Negative); Urine Protein Trace (Negative); Urine Specific Gravity 1.027 (1.002-1.030); Urine Urobilinogen Negative (Negative); Urine pH 5.5 (5.0-8.0)
[2023-09-13 10:45] LABS: Urine Bacteria Absent /HPF (Absent); Urine Red Blood Cell 3+(>10/hpf) /HPF (0-Trace); Urine White Blood Cell 2+(11-20/hpf) /HPF (0-Trace)
[2023-09-13] MEDS: Morphine 4 MG/ML VIAL (1 ml) IV ONE (12:09)
[2023-09-13] MEDS: cefTRIAXone 1 gm/50 mL D5W 1 GM/50 ML BAG IV ONE (16:35)
[2023-09-13] MEDS: Orphenadrine Citrate INJ 30 mg/ml 2 ml VIAL (60 mg) IM ONE (17:08)
[2023-09-13] MEDS: Lactated Ringers 1000 ml BAG 1,000 ML IV SCH (19:34)
[2023-09-13] MEDS: Acetaminophen IV 1 GM/100ML 1,000 MG/100 ML BAG IV SCH (19:34)
[2023-09-14] MEDS: Morphine 2 MG/ML SYRINGE IV PRN (06:11)
[2023-09-14] MEDS: Morphine 2 MG/ML SYRINGE IV ONE (06:47)
[2023-09-14 07:38] LABS: ABS Eosinophils 0.1 10^3/uL (0.0-0.5); ABS Lymphocytes 2.5 10^3/uL (1.0-4.8); ABS Monocytes 1.3 10^3/uL (0.0-1.1); ABS Neutrophils 4.9 10^3/uL (1.5-7.6); Hemoglobin 12.7 g/dL (13.2-16.3); Lymphocyte % 28.5 %; Mean Corpuscular Hemoglobin 30.2 pg (27-33); Mean Corpuscular Hgb Conc 35.4 g/dL (31-36); Mean Corpuscular Volume 85.3 fL (80-97); Mean Platelet Volume 8.5 fL (7.5-11.2); Platelet Count 242 10^3/uL (150-450); Red Blood Count 4.22 10^6/uL (4.06-5.63); Red Cell Distribution Width 12.8 % (12-17); White Blood Count 8.8 10^3/uL (3.6-10.2)
[2023-09-14 07:47] LABS: Calcium 8.3 mg/dL (8.6-10.3); Creatinine, Serum 1.28 mg/dL (0.67-1.17); Potassium 4.1 mmol/L (3.5-5.0); eGFR CKD-EPI 69.5 (>60)
[2023-09-14] MEDS ORDERED: Dexamethasone IV 4 MG/ML VIAL 1 ml VIAL ONE (08:03)
[2023-09-14] MEDS ORDERED: Propofol 10 MG/ML 20 ML BTL ONE (08:03)
[2023-09-14] MEDS ORDERED: Midazolam 2 mg/2 ml VIAL 1 mg/ml 2 ml VIAL (2 mg) ONE (08:03)
[2023-09-14] MEDS ORDERED: Ondansetron 4 mg VIAL 2 MG/ML 2 ml VIAL ONE (08:03)
[2023-09-14] MEDS ORDERED: fentaNYL 100 mcg/2 ml 50 MCG/ML VIAL ONE ×2 (08:03→08:57)
[2023-09-14] MEDS ORDERED: Lidocaine 2% PF 5 ML VIAL ONE (08:03)
[2023-09-14] MEDS ORDERED: Ondansetron 4 mg VIAL 2 MG/ML 2 ml VIAL IV PRN (08:12)
[2023-09-14] MEDS ORDERED: Metoclopramide 5 MG/ML VIAL (10 mg) IV PRN (08:12)
[2023-09-14] MEDS ORDERED: Naloxone 0.4 mg VIAL 0.4 mg/ml 1 ml VIAL IV PRN (08:12)
[2023-09-14] MEDS ORDERED: fentaNYL 100 mcg/2 ml 50 MCG/ML VIAL IV PRN (08:12)
[2023-09-14] MEDS ORDERED: ceFAZolin VIAL VIAL ONE (08:48)
[2023-09-14] MEDS ORDERED: Phenylephrine 40 mcg/mL 10mL (400mcg) SYRINGE ONE (08:57)
[2023-09-14] MEDS ORDERED: NS 0.45% 1000 ml BAG 1,000 ML IV SCH (09:00)
[2023-09-14] MEDS: Buffered Lidocaine 1% SYRIN 1 ml INTRADERM ONE (11:11)
[2023-09-14] MEDS: Scopolamine 1 mg/72hr PATCH TRANSDERM ONE (11:11)
[2023-09-14] MEDS: Lactated Ringers 1000 ml BAG 1,000 ML IV SCH (11:11)
[2023-09-14] MEDS: Acetaminophen IV 1 GM/100ML 1,000 MG/100 ML BAG IV ONE (11:11)
[2023-09-14] MEDS ORDERED: cefTRIAXone 1 gm/50 mL D5W 1 GM/50 ML BAG IV SCH (16:30)
[2023-09-14] MEDS: cefTRIAXone 1 gm/50 mL D5W 1 GM/50 ML BAG IV SCH (20:26)
[2023-09-15 06:08] LABS: ABS Lymphocytes 1.3 10^3/uL (1.0-4.8); ABS Monocytes 1.2 10^3/uL (0.0-1.1); Hemoglobin 11.6 g/dL (13.2-16.3); Mean Corpuscular Hgb Conc 34.3 g/dL (31-36); Mean Corpuscular Volume 84.5 fL (80-97); Mean Platelet Volume 8.3 fL (7.5-11.2); Platelet Count 259 10^3/uL (150-450); Red Blood Count 4.02 10^6/uL (4.06-5.63); Red Cell Distribution Width 12.8 % (12-17); White Blood Count 12.5 10^3/uL (3.6-10.2)
[2023-09-15 07:06] LABS: Calcium 8.8 mg/dL (8.6-10.3); Creatinine, Serum 1.02 mg/dL (0.67-1.17); Potassium 4.1 mmol/L (3.5-5.0); eGFR CKD-EPI 91.2 (>60)
[2023-09-16 05:48] LABS: ABS Eosinophils 0.1 10^3/uL (0.0-0.5); ABS Lymphocytes 1.7 10^3/uL (1.0-4.8); ABS Monocytes 1.2 10^3/uL (0.0-1.1); ABS Neutrophils 5.4 10^3/uL (1.5-7.6); Eosinophil % 0.8 %; Hematocrit 32.5 % (38-53); Hemoglobin 11.4 g/dL (13.2-16.3); Lymphocyte % 20.4 %; Mean Corpuscular Hemoglobin 29.5 pg (27-33); Mean Corpuscular Hgb Conc 35.1 g/dL (31-36); Mean Platelet Volume 7.9 fL (7.5-11.2); Platelet Count 261 10^3/uL (150-450); Red Blood Count 3.87 10^6/uL (4.06-5.63); Red Cell Distribution Width 12.6 % (12-17); White Blood Count 8.5 10^3/uL (3.6-10.2)
[2023-09-16 06:26] LABS: Calcium 8.3 mg/dL (8.6-10.3); Creatinine, Serum 1.43 mg/dL (0.67-1.17); Potassium 3.5 mmol/L (3.5-5.0); eGFR CKD-EPI 60.8 (>60)
[2023-09-16 08:34] LABS: INR 1.08 (0.83-1.13)
[2023-09-16] MEDS ORDERED: Flumazenil 0.5 mg/5 ml 0.1 MG/ML 5 ml VIAL IV PRN (09:01)
[2023-09-16] MEDS ORDERED: Naloxone 0.4 mg VIAL 0.4 mg/ml 1 ml VIAL IV PUSH PRN (09:01)
[2023-09-16] MEDS: fentaNYL 100 mcg/2 ml 50 MCG/ML VIAL IV SLOW PU ONE (13:18)
[2023-09-16] MEDS: Midazolam 10 mg/10 ml VIAL 1 mg/ml 10 ml VIAL (10 mg) IV SLOW PU ONE (13:18)
[2023-09-16] MEDS: fentaNYL 250 mcg/5 ml 50 MCG/ML 5 ml VIAL (250 MCG) ONE (13:19)
[2023-09-16] MEDS: Midazolam 2 mg/2 ml VIAL 1 mg/ml 2 ml VIAL (2 mg) ONE (13:19)
[2023-09-16] MEDS ORDERED: Polyethylene Glycol 3350 17 GM PACKET PO PRN (21:15)
[2023-09-16] MEDS ORDERED: Senna TAB 8.6 mg TAB PO PRN (21:15)
[2023-09-17] MEDS: Magnesium Hydroxide LIQ 30 ML UDC PO ONE (09:29)
[2023-09-17 09:43] VITALS: BP 135/88
[2023-09-17 10:27] LABS: Calcium 8.9 mg/dL (8.6-10.3); Creatinine, Serum 1.06 mg/dL (0.67-1.17); Potassium 4.1 mmol/L (3.5-5.0); eGFR CKD-EPI 87.1 (>60)
== END 2023-09-17 14:10 | disposition home or self-care (01) | DRG 854 ==
LOC: ED 07:45 → EDHOLD 07:45 → MED 23:48
PROVIDERS: ADMIT Internal Medicine; ATTEND Internal Medicine

== ENCOUNTER 2023-09-30 10:47 | Observation (INO) ==
[~2023-09-30 10:47] MED LIST: NS 0.45% 1000 ml BAG 1,000 ML IV SCH; Naloxone 0.4 mg VIAL 0.4 mg/ml 1 ml VIAL IV PRN; Ondansetron 4 mg VIAL 2 MG/ML 2 ml VIAL IV PRN
[2023-09-30] MEDS ORDERED: ceFAZolin 2 GM in NS PREMIX 2 GM/100 ML BAG IVPB ONE (12:30)
[2023-09-30] MEDS ORDERED: Lidocaine 2% PF 5 ML VIAL ONE ×2 (13:20→14:33)
[2023-09-30] MEDS ORDERED: fentaNYL 100 mcg/2 ml 50 MCG/ML VIAL ONE ×5 (13:20→19:09)
[2023-09-30] MEDS ORDERED: Midazolam 2 mg/2 ml VIAL 1 mg/ml 2 ml VIAL (2 mg) ONE ×2 (13:20→14:26)
[2023-09-30] MEDS ORDERED: Bupivacaine 0.25% SDV 30 ML ONE (14:13)
[2023-09-30] MEDS ORDERED: Propofol 10 MG/ML 20 ML BTL ONE (14:33)
[2023-09-30] MEDS ORDERED: Rocuronium 50 mg VIAL 10 mg/ml 5 ml VIAL (50 mg) ONE (14:34)
[2023-09-30] MEDS ORDERED: Ondansetron 4 mg VIAL 2 MG/ML 2 ml VIAL ONE (15:04)
[2023-09-30] MEDS ORDERED: Dexamethasone IV 4 MG/ML VIAL 1 ml VIAL ONE (15:04)
[2023-09-30] MEDS ORDERED: Glycopyrrolate IV 0.2 MG/ML 1 ML VIAL ONE (15:13)
[2023-09-30] MEDS ORDERED: Iohexol 180 (CONTRAST) 10 ML SDV IV ONE (15:21)
[2023-09-30] MEDS ORDERED: Iohexol 350 (CONTRAST) 100 ML PAK IV ONE (15:21)
[2023-09-30] MEDS: fentaNYL 100 mcg/2 ml 50 MCG/ML VIAL IV PRN (16:50)
[2023-09-30] MEDS: Buffered Lidocaine 1% SYRIN 1 ml INTRADERM ONE (17:48)
[2023-09-30] MEDS: Lactated Ringers 1000 ml BAG 1,000 ML IV SCH (17:48)
[2023-09-30] MEDS: Acetaminophen IV 1 GM/100ML 1,000 MG/100 ML BAG IV ONE (17:48)
[2023-09-30] MEDS: Gentamicin ADULT 80 MG in NS 0.9% 100 ml BAG 100 ML IVPB ONE (20:55)
[2023-09-30] MEDS: Benzocaine/Menthol LOZ PO PRN (21:46)
[2023-10-01] MEDS ORDERED: Lisinopril/HCTZ 10/12.5 TA(NF) PO SCH (09:00)
[2023-10-01] MEDS: fentaNYL 100 mcg/2 ml 50 MCG/ML VIAL ONE (11:28)
[2023-10-01] MEDS: Calcium Carb (TUMS) 500 mg CHEW TAB PO PRN (13:56)
[2023-10-01 14:08] VITALS: BP 115/90
== END 2023-10-01 16:45 | disposition home or self-care (01) ==
LOC: OR 10:47 → INTOOBSV 17:38 → SSU 17:38
PROVIDERS: ADMIT Specialist; ATTEND Internal Medicine